=== PATIENT | female | born 1980 | race Caucasian/White ===

== ENCOUNTER 2021-09-16 14:10 | Emergency (ER) | payer SELFPAY ==
[2021-09-16 14:16] VITALS: BP 122/77; PULSE 86; RESP 18; TEMP 36.6; O2SAT 99; BMI 31.8
--- NOTE | 2021-09-16 14:21 | ED_ITS ---
HPI - Extremity Problem General: Chief complaint: Extremity Injury, Upper Stated complaint: right shoulder pain Time Seen by Provider: 09/16/21 14:20 Source: patient and family Mode of arrival: ambulatory Limitations: no limitations History of Present Illness: Patient is a 40-year-old female who presents to ED today for evaluation of right shoulder pain. Patient tells me she began feeling some soreness in her right shoulder earlier today. She denies any injury or trauma. She states by the end of the day and upon arrival to the ED she is having significant discomfort in the shoulder with any form of range of motion. She states she is fairly asymptomatic at rest and while not moving the joint. She has full painless range of motion of her elbow and wrist joints. She has not noticed any redness or swelling to the shoulder. Again she has not had any injury or trauma. She does not have any neck pain. She does not complain of any numbness, tingling, loss of sensation to the arm. She has not noticed any color or temperature changes. Patient does not have any chest pain, shortness of breath, difficulty breathing. MD Complaint: joint pain Onset (ago): hour(s) Pain Consistency: constant Location: right and upper extremity Radiation: none Relieving factors: immobilization Exacerbating factors: range of motion and palpation Associated symptoms: Reports no associated symptoms; Deny chest pain, fever(s) or rash Review of Systems Const: Denies: fever(s), chills, body aches, fatigue or malaise Card: Denies: chest pain, palpitations, lightheadedness, dyspnea on exertion or orthopnea Resp: Denies: dyspnea or pain on inspiration Musc: Reports: joint pain (R shoulder) and limited range of motion; Denies: neck pain, back pain, extremity pain, extremity swelling, joint swelling, joint redness, joint warmth or muscle weakness Skin/Breast: Denies: rash Neuro: Denies: headache(s), numbness in extremities, weakness in extremities or sensory changes Physical Exam Const: COMMON NORMALS: no acute distress, patient oriented x3, no limitations and alert NUTRITIONAL APPEARANCE: overweight ORIENTATION/CONSCIOUSNESS: Yes awake, Yes oriented to person, Yes oriented to place and Yes oriented to time Neck/C-Spine: COMMON NORMALS: full ROM CERVICAL SPINE: No cervical ROM normal, No pain with cervical ROM, No Cervical spine tenderness, No step off deformity and No Paracervical muscle tenderness Chest: COMMONS NORMALS: normal inspection of the chest and normal palpation of entire chest wall Resp: COMMON NORMALS: normal respiratory effort and clear to auscultation bilaterally AUSCULTATION: clear to auscultation bilaterally Cardio: COMMON NORMALS: regular rate and regular rhythm RATE: regular rate RHYTHM: regular rhythm Back/Pelvis: COMMON NORMALS: thoracic and lumbar spine normal to inspection, no thoracic nor lumbar tenderness and thoraco-lumbar ROM normal Extremity: COMMON NORMALS: capillary refill normal, no joint enlargement and no clubbing, cyanosis or edema RIGHT UPPER EXTREMITY: Yes shoulder joint (no pain at rest; pain elicited with any ROM of shoulder joint) Right shoulder: Yes Right shoulder joint inspection exam (TTP mainly anterior joint line), Yes palpation, Yes Right shoulder joint neurovascular exam (normal; no swelling, color/temp changes noted to extremity) and Yes Right shoulder joint other fi ndings (pulses intact, sensation normal, does not complain of radicular pain) EXTREMITY IMAGE (FRONT): 1. TTP Neuro: COMMON NORMALS: patient oriented x3, moves all extremities, no focal motor deficits and no sensory deficits noted SENSORIUM/ORIENTATION: Yes alert, Yes oriented to person, Yes oriented to place and Yes oriented to time Skin: COMMON NORMALS: no rashes or lesions noted GENERAL SKIN EXAM: no ra shes or lesions noted Course Vital Signs: Vital signs: Vital Signs Temperature 98 F 09/16/21 14:16 Pulse Rate 86 09/16/21 14:16 Respiratory Rate 18 09/16/21 14:16 Blood Pressure 122/77 09/16/21 14:16 Pulse Oximetry 99 09/16/21 14:16 MDM - Extremity (Nontraumatic) Medical Decision Making Patient here with atraumatic right shoulder pain. XRs are normal. Pain is directly reproducible with palpation along her anterior joint line and range of motion of her shoulder. She has no evidence for any type of neurovascular compromise. At this point we will have her follow-up with primary care in approximately week for reevaluation. Will place on steroids, anti-inflammato aime, muscle relaxers. She can do a sling over the next 24 to 48 hours with gentle passive range of motion exercises. Strict return to ED precautions verbally given. Lab Data Radiology Impressions Chest X-Ray 09/16/21 14:37 IMPRESSION: No acute cardiopulmonary abnormality identified. No acute injury identified. Shoulder X-Ray 09/16/21 14:37 IMPRESSION: No acute findings. Discharge Plan Discharge Patient Disposition: Home Clinical Impression: Acute pain of right shoulder Condition: Stable Prescriptions: New methocarbamol 500 mg tablet 1,000 mg PO Q8H Qty: 30 0RF prednisone 10 mg tablet 60 mg PO DAILY 5 Days Qty: 30 0RF diclofenac sodium 50 mg tablet,delayed release (DR/EC) 50 mg PO Q12H PRN (Reason: pain) Qty: 20 0RF Discharge Orders: Discharge ED (Routine); Ordered 09/16/21 Ordered By: Teresa Isabel Coding Level of Care Code ED Medical Radiation Dosimetrist for Marc Mejia
--- NOTE | 2021-09-16 14:37 | XRR_ITS ---
PROCEDURE INFORMATION: Exam: XR Chest Exam date and time: 09/16/2021 2:43 PM Age: 40 years old Clinical indication: Angina pectoris; Patient HX: Went to a garage sale, afterward sat down and pain in right shoulder became very severe. No lifting or injuries occurred. ; Additional info: Chest pain TECHNIQUE: Imaging protocol: XR of the chest. Views: 1 view. Other technique: Frontal portable upright view of the chest. COMPARISON: CR Chest 2 views* [id number] 03/16/2015 10:25 AM FINDINGS: Lungs: The lungs are clear bilaterally. The pulmonary vasculature is normal. Pleural spaces: No pleural effusion. No pneumothorax. Heart/Mediastinum: The heart is normal in size and contour. Mediastinum: Stable. Bones/joints: Stable. XR/XR chest 1V portable [id number] IMPRESSION: No acute cardiopulmonary abnormality identified. No acute injury identified.
--- NOTE | 2021-09-16 14:37 | XRR_ITS ---
PROCEDURE INFORMATION: Exam: XR Right Shoulder Exam date and time: 09/16/2021 2:43 PM Age: 40 years old Clinical indication: Patient HX: Went to a garage sale, afterward sat down and pain in right shoulder became very severe. No lifting or injuries occurred. TECHNIQUE: Imaging protocol: XR Right shoulder. Views: 2 views. Other technique: AP internal and neutral rotation views of the right shoulder. COMPARISON: CR Chest 2 views* [id number] 03/16/2015 10:25 AM FINDINGS: Bones/joints: Normal. Soft tissues: Normal. XR/XR shoulder RT min 2V* [id number] IMPRESSION: No acute findings.
[2021-09-16] MEDS: dexamethasone 10 mg/mL INJ 8 MG IM (14:55)
[2021-09-16] MEDS: ketorolac 60 mg/2 mL INJ IM (14:55)
[2021-09-16] MEDS: orphenadrine 30 mg/mL Inj 2 mL 60 MG IM (14:55)
--- NOTE | 2021-09-17 09:30 | DCPLANNER ---
manager marketing sales had message to speak with patient about getting established with a primary care physician. manager marketing sales spoke with patient, she stated that she does not have insurance at this time. manager marketing sales mailed patient both of the financial applications for the hospital to fill out and turn in. Patient stated that she will call employment case manager back to get established with a provider.
== END 2021-09-16 16:41 | disposition home or self-care (01) ==
PROVIDERS: Emergency Provider Physician Assistant
DX: M25.511 Pain in right shoulder (principal)
CPT/HCPCS: 71045; 73030; 96372; 99284; J1100; J1885; J2360